=== PATIENT | male | born 1975 | race Caucasian/White ===

== ENCOUNTER 2023-12-14 13:49 | Emergency (ER) | payer OTHER ==
[2023-12-14 14:12] VITALS: RESP 20; TEMP 98.6
--- NOTE | 2023-12-14 15:30 | ED ---
General Adult HPI - General Chief complaint: Skin/Abscess/Foreign Body Stated complaint: mass on neck Time Seen by Provider: 12/14/23 14:59 Source: patient Mode of arrival: ambulatory Limitations: no limitations - History of Present Illness Initial comments: Patient is a 48-year-old male, past medical history of diabetes presenting today for right-sided neck mass. Patient states that the mass has been there for the last 2 to 3 years has increased in size in the last 2-3 months. Approximately 2 months ago patient experienced a dark purple red rash around his eyes and face so went to a clinic and was placed on antibiotics and steroids. Patient feels rash worsened with steroids. He has been back and forth to this clinic and trialed on various anti biotics without improvement in the rash. Over the last week patient began experiencing fatigue and weakness in his upper extremities. 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 Last week he has noticed that he is losing his voice and over the last 2 months has also had difficulty swallowing liquids and solids. He states that if he tries to swallow them he coughs them back up. Due to this he has lost approximately 40 to 50 pounds in the last [address] soft tissue mass done one week ago which showed 4x3 cm necrotic mass in the right side of the neck. Was seen by his PCP this morning who sent him to the ED for further evaluation. Patient denies fevers, chills, sweats, chest pain, difficulty in breathing, abdominal pain, nausea, vomiting, diarrhea, black or bloody stools. - Related Data Allergies Allergy/AdvReac Type Severity Reaction Status Date / Time ibuprofen [From Advil] AdvReac Unknown Verified 12/14/23 14:12 naproxen [From Aleve] AdvReac Unknown Verified 12/14/23 14:12 Review of Systems ROS Statement: Those systems with pertinent positive or pertinent negative responses have been documented in the HPI. ROS Other: All systems not noted in ROS Statement are negative. Past Medical History Past Medical History: Diabetes Mellitus Additional Past Medical History / Comment(s): Mass to right side of neck, type 2 diabetes, Past Surgical History: No Surgical Hx Reported Past Psychological History: No Psychological Hx Reported Smoking Status: Never smoker Past Alcohol Use History: Occasional Past Drug Use History: None Reported General Exam - General Exam Comments Initial Comments: Exam limited as patient was seen in waiting room hallway due to shortage of bed PE: CONSTITUTIONAL: no apparent distress, ill-appearing though nontoxic SKIN: Erythematous raised macular rash across forehead, cheeks, purpleish rash across eyelids, abdomen has erythematous macules with scabbing, no vesicular lesions present EYES: pupils are equally round, extraocular movements intact without nystagmus, clear conjunctiva, non-icteric sclera HENT: normocephalic, atraumatic, mildy dry mucus membranes, oropharynx clear without exudates, no uvular or tonsilar swelling or deviation, no oropharyngeal masses or edema NECK: Nontender and supple with no nuchal rigidity, full range of motion, firm palpable mass along the right side of patient's submandibular region, nontender, without drainage Limited as patient does have a mondragon PULMONARY: clear to auscultation without wheezes, rhonchi, or rales, normal excursion, no accessory muscle use and no stridor CARDIOVASCULAR: regular rate, rhythm, normal S1 and S2. No appreciated murmurs. Strong radial pulses with intact distal perfusion GASTROINTESTINAL: soft, non-tender,mildly distended, no palpable masses, no rebound or guarding LYMPHATICS: no edema in lower extremities. MUSCULOSKELETAL: Extremities are nontender to palpation and have no gross deformity, no edema, redness, or swelling, 4/5 strength upper upper extremities with shoulder abduction bilaterally, strength equal on both sides, 4/5 strength with hip flexion, strength equal on both sides NEUROLOGIC: _a/o x 3, GCS 15, normal mentation and speech. Moves all extremities x 4 without motor or sensory deficit, except weakness as noted in MSK exam PSYCHIATRIC: _normal mood and affect, thought process is clear and linear Limitations: no limitations Course Vital Signs 12/14/23 12/14/23 14:03 17:22 Temperature 98.6 F Pulse Rate 124 H 118 H Respiratory 20 20 Rate Blood Pressure 155/73 128/85 O2 Sat by Pulse 98 98 Oximetry - Reevaluation(s) Reevaluation #1: Discussed with Dr. Lopez, ENT, He recommends transfer due to location of mass. Discussed with patient, and discussed considering transfer to [facility], [place], he is comfortable with transfer to [facility]. 12/14/23 16:09 12/19/23 13:00 EKG Findings - EKG Comments: EKG Findings:: Sinus tachycardia. Rate 109 bpm. MN interval 149 ms. QT/QTc 335/399 ms. Normal axis. No ST elevations or depressions, no arrhythmia Medical Decision Making - Medical Decision Making Was pt. sent in by a medical professional or institution (, PA, COSMETOLOGIST APPRENTICE, urgent care, hospital, or snf...) When possible be specific @ -Patient was sent by his primary care provider, Dr. Ruiz Did you speak to anyone other than the patient for history (EMS, parent, family, police, friend...)? What history was obtained from this source @ -Discussed with patient's primary care provider, Dr. Ruiz, states that patient has been dealing with rash, Keflex and prednisone have been trialed wi thout relief, CT soft tissue neck ordered and resulted with necrotic mass in the right submandibular region, sent patient to the ED for further workup out of concern for neoplasm and due to stridor and difficulty in swallowing Did you review nursing and triage notes (agree or disagree)? Why? @ -I reviewed and agree with nursing and triage notes Were old charts reviewed (outside hosp., previous admission, EMS record, old EKG, old radiological studies, urgent care reports/EKG's, snf records)? Report findings @ -Reviewed CT soft tissue neck with contrast report, performed and resulted 12/05/2023 Differential Diagnosis (chest pain, altered mental status, abdominal pain women, abdominal pain men, vaginal bleeding, weakness, fever, dyspnea, syncope, headache, dizziness, GI bleed, back pain, seizure, CVA, palpatations, mental health, musculoskeletal)? @ -Differential diagnosis remains broad however top considerations include neoplasm, abscess, infected lymph node, though of note, patient presents with CT report as above. 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 EKG interpreted by me (3pts min.). @ -As above X-rays interpreted by me (1pt min.). @ -None done CT interpreted by me (1pt min.). @ -None done U/S interpreted by me (1pt. min.). @ -None done What testing was considered but not performed or refused? (CT, X-rays, U/S, labs)? Why? @ -Consider repeat CT soft tissue neck, however patient presented with CT report performed 1 week ago and patient's presenation overall stable since that time period What meds were considered but not given or refused? Why? @ -Did consider administering steroids however patient states that he feels he is worse and his rash so we will hold off at this point Did you discuss the management of the patient with other professionals (professionals i.e. , PA, COSMETOLOGIST APPRENTICE, lab, RT, psych nurse, older adult social work specialist, art educator, teacher, chief financial officer, gearcase assembler)? Give summary @ -Discussed with Dr. Lopez ENT Was smoking cessation discussed for >3mins.? @ -No Was critical care preformed (if so, how long)? @ -No Were there social determinants of health that impacted care today? How? (Homelessness, low income, unemployed, alcoholism, drug addiction, transportation, low edu. Level, literacy, decrease access to med. care, detention, rehab)? @ -Difficulty obtaining insurance, patient was hoping to wait for further evaluation of his neck mass until he was on insurance that would help pay for care of this Was there de-escalation of care discussed even if they declined (Discuss DNR or withdrawal of care, Hospice)? DNR status @ -No Was patient admitted / discharged? Hospital course, mention meds given and route, prescriptions, significant lab abnormalities, going to OR and other pe rtinent info. @ -Patient transferred to [facility] Patient is a pleasant 48-year-old gentleman presenting for submandibular mass that has been ongoing for 2 to 3 years, worsened over the last 2 to 3 months, with associated rash further characterized on CT 1 week ago, that was obtained due to voice changes, hoarseness. Reviewed CT scan, showed 3.5 x 4 cm potentially necrotic mass in the right submandibular region. Documented to be tachycardic on arrival, other VS stable, no hypoxia, tachypnea or hypotension. Suspect tachycardia could be 2/2 volume depletion as patient has not been able to eat or drink much due to neck mass, patient currently denies pain, so unlikely pain driven, could potentially be 2/2 infection as well. On my assessment patient was initially evaluated in waiting room due to shortage of beds in the main emergency department, initial assessment shows ill-appearing t debo nontoxic appearing 48-year-old male in no acute distress. Erythematous and purplish rash with thickening of the eyelids and forehead, scattered erythematous lesions across abdominal wall with scabbing, they do not follow a dermatomal distribution, there are no vesicular lesions, firm, palpable, nontender right-sided submandibular mass palpated. Patient has no stridor, wheezing, rhonchi or accessory muscle use. Lungs are clear to auscultation. He does have a hoarse voice. Normal S1-S2 on cardiac exam, abdomen is soft and nontender though mildly distended. Plan for dose of Unasyn, to cover for infectious etiology, urinalysis to assess for urine myoglobin, CBC, CMP, lactic, PT, PTT, CRP, ESR, blood cultures, troponin, EKG to assess for cardiac involvement if patient's presentation if causing patient skin changes is dermatomyositis. Patient and agreeable with plan of care. Reviewed labs, I see no leukocytosis, lymphocytes are low at 0.8, ESR 71, sodium 135, bicarb 21, creatinine 0.52, GFR greater than 90, AST/ALT 161/86, total bilirubin 0.9, troponin less than 0.012. Suspect elevated LFTs could be 2/2 steroid use, possible alcohol use. Patient displays no jaundice, hepatomegaly or RUQ pain on exam. Patient transferred ER [facility] to [facility] for further treatment of submandibular mass by ENT. Accepted for transfer by Dr. Hercules. Updated patient plan of care. We did discuss that there is concern that mass could potentially be neoplastic and discussed the need for urgent further workup and evaluation to ensure timely treatment, he is agreeable with transfer. Patient is in stable condition currently, protecting his airway without stidor, hypoxia or tachpnea or hypotension. Patient noted to be tachycardic prior to transfer, though IV fluids were not administered prior to transfer as patient was in waiting room for much of his workup and shortly after rooming patient accepted for transfer. Patient will be transferred via private vehicle due to patient preference, though ambulance transfer was offered. Undiagnosed new problem with uncertain prognosis? @ -Yes Drug Therapy requiring intensive monitoring for toxicity (Heparin, Nitro, Insulin, Cardizem)? @ -No Were any procedures done? @ -No Diagnosis/symptom? @ -Submandibular mass, rash, possible dermatomyositis Acute, or Chronic, or Acute on Chronic? @ -Acute Uncomplicated (without systemic symptoms) or Complicated (systemic symptoms)? @ -Complicated Side effects of treatment? @ -No Exacerbation, Progression, or Severe Exacerbation? @ -No Poses a threat to life or bodily function? How? (Chest pain, USA, NC, pneumonia, PE, COPD, DKA, ARF, appy, cholecystitis, CVA, Diverticulitis, Homicidal, Suicidal, threat to staff... and all critical care pts) @ -Yes, if submandibular mass allowed to progress or goes untreated, could eventually compromise airway leading to respiratory failure and . - Lab Data Result diagrams: 12/14/23 16:11 12/14/23 16:11 Lab Results 12/14/23 12/14/23 12/14/23 Range/Units 16:11 16:11 16:11 WBC 6.5 (3.8-10.6) k/uL RBC 4.92 (4.30-5.90) m/uL Hgb 14.0 (13.0-17.5) gm/dL Hct 42.8 (39.0-53.0) % MCV 87.0 (80.0-100.0) fL MCH 28.4 (25.0-35.0) pg MCHC 32.6 (31.0-37.0) g/dL RDW 13.1 (11.5-15.5) % Plt Count 276 (150-450) k/uL MPV 7.4 Neutrophils % 79 % Lymphocytes % 13 % Monocytes % 6 % Eosinophils % 2 % Basophils % 1 % Neutrophils # 5.1 (1.3-7.7) k/uL Lymphocytes # 0.8 L (1.0-4.8) k/uL Monocytes # 0.4 (0-1.0) k/uL Eosinophils # 0.1 (0-0.7) k/uL Basophils # 0.0 (0-0.2) k/uL ESR 71 H (0-15) mm/Hr PT 10.6 (10.0-12.5) sec INR 1.0 (<1.2) APTT 25.2 (22.0-30.0) sec Sodium 135 L (137-145) mmol/L Potassium 4.2 (3.5-5.1) mmol/L Chloride 103 (98-107) mmol/L Carbon Dioxide 21 L (22-30) mmol/L Anion Gap 11 mmol/L BUN 15 (9-20) mg/dL Creatinine 0.52 L (0.66-1.25) mg/dL Est GFR (CKD-EPI)AfAm >90 (>60 ml/min/1.73 sqM) Est GFR (CKD-EPI)NonAf >90 (>60 ml/min/1.73 sqM) Glucose 86 (74-99) mg/dL Plasma Lactic Acid Gavin (0.7-2.0) mmol/L Calcium 8.7 (8.4-10.2) mg/dL Total Bilirubin 0.9 (0.2-1.3) mg/dL AST 161 H (17-59) U/L ALT 86 H (4-49) U/L Alkaline Phosphatase 67 (38-126) U/L Troponin I (0.000-0.034) ng/mL C-Reactive Protein 4.1 H (<1.0) mg/dL Total Protein 6.6 (6.3-8.2) g/dL Albumin 3.8 (3.5-5.0) g/dL 12/14/23 12/14/23 Range/Units 16:11 16:11 WBC (3.8-10.6) k/uL RBC (4.30-5.90) m/uL Hgb (13.0-17.5) gm/dL Hct (39.0-53.0) % MCV (80.0-100.0) fL MCH (25.0-35.0) pg MCHC (31.0-37.0) g/dL RDW (11.5-15.5) % Plt Count (150-450) k/uL MPV Neutrophils % % Lymphocytes % % Monocytes % % Eosinophils % % Basophils % % Neutrophils # (1.3-7.7) k/uL Lymphocytes # (1.0-4.8) k/uL Monocytes # (0-1.0) k/uL Eosinophils # (0-0.7) k/uL Basophils # (0-0.2) k/uL ESR (0-15) mm/Hr PT (10.0-12.5) sec INR (<1.2) APTT (22.0-30.0) sec Sodium (137-145) mmol/L Potassium (3.5-5.1) mmol/L Chloride (98-107) mmol/L Carbon Dioxide (22-30) mmol/L Anion Gap mmol/L BUN (9-20) mg/dL Creatinine (0.66-1.25) mg/dL Est GFR (CKD-EPI)AfAm (>60 ml/min/1.73 sqM) Est GFR (CKD-EPI)NonAf (>60 ml/min/1.73 sqM) Glucose (74-99) mg/dL Plasma Lactic Acid Gavin 1.9 (0.7-2.0) mmol/L Calcium (8.4-10.2) mg/dL Total Bilirubin (0.2-1.3) mg/dL AST (17-59) U/L ALT (4-49) U/L Alkaline Phosphatase (38-126) U/L Troponin I <0.012 (0.000-0.034) ng/mL C-Reactive Protein (<1.0) mg/dL Total Protein (6.3-8.2) g/dL Albumin (3.5-5.0) g/dL Disposition Clinical Impression: Rash, Mass of right submandibular region Narrative: heliotrope 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 Specs Out of Hospital Transfer - Requested Specifics: Other Emergency Center (ENT who handles submandibular masses)
[2023-12-14] MEDS: AMPICILLIN-SULBACTAM 3 GM in SODIUM CHLORIDE 0.9% 100 ML IVPB STA (16:35)
[2023-12-14 16:47] LABS: Basophils % (A) 1 %; Eosinophils # (A) 0.1 k/uL (0-0.7); Eosinophils % (A) 2 %; HCT 42.8 % (39.0-53.0); Lymphocytes # (A) 0.8 k/uL (1.0-4.8); Lymphocytes % (A) 13 %; MCH 28.4 pg (25.0-35.0); MCHC 32.6 g/dL (31.0-37.0); Mean Platelet Volume 7.4; Monocytes # (A) 0.4 k/uL (0-1.0); Monocytes % (A) 6 %; Neutrophils # (A) 5.1 k/uL (1.3-7.7); Neutrophils % (A) 79 %; Platelet Count 276 k/uL (150-450); RBC 4.92 m/uL (4.30-5.90); RDW 13.1 % (11.5-15.5); WBC 6.5 k/uL (3.8-10.6)
[2023-12-14 16:58] LABS: Partial Thromboplastin Time 25.2 sec (22.0-30.0); Prothrombin Time 10.6 sec (10.0-12.5)
[2023-12-14 17:11] LABS: ALT 86 U/L (4-49); AST 161 U/L (17-59); African American GFR (CKD) >90 (>60 ml/min/1.73 sqM); Albumin 3.8 g/dL (3.5-5.0); Alkaline Phosphatase 67 U/L (38-126); Anion Gap 11 mmol/L; Blood Urea Nitrogen 15 mg/dL (9-20); C Reactive Protein 4.1 mg/dL (<1.0); Calcium 8.7 mg/dL (8.4-10.2); Carbon Dioxide 21 mmol/L (22-30); Chloride 103 mmol/L (98-107); Glucose 86 mg/dL (74-99); Non-African American GFR(CKD) >90 (>60 ml/min/1.73 sqM); Potassium 4.2 mmol/L (3.5-5.1); Sodium 135 mmol/L (137-145); Total Bilirubin 0.9 mg/dL (0.2-1.3); Total Protein 6.6 g/dL (6.3-8.2)
[2023-12-14 17:22] VITALS: BP 128/85; PULSE 118
[2023-12-15 01:45] LABS: Erythrocyte Sedimentation Rate 71 mm/Hr (0-15)
== END 2023-12-14 17:46 | disposition other institution (70) ==
LOC: EC 13:49
DX: R22.1 Localized swelling, mass and lump, neck (principal); R21 Rash and other nonspecific skin eruption; R00.0 Tachycardia, unspecified; Z88.6 Allergy status to analgesic agent
CPT/HCPCS: 36415; 93005; 80053; 85652; 83605; 84484; 85025; 85610; 85730; 86140; 87040; 99284; 96365; J0295

== ENCOUNTER 2024-01-04 13:25 | Day surgery (SDC) | payer OTHER ==
[~2024-01-04 13:25] MED LIST: ACETAMINOPHEN TAB 500 MG TAB ONE; DEXAMETHASONE SOD PHOSPHATE 4 MG/ML 1 ML VIAL ONE; HEPARIN SODIUM,PORCINE 5,000 UNIT/ML 1 ML VIAL ONE; LACTATED RINGERS 1,000 ML BAG ONE; ONDANSETRON 4 MG/2 ML VIAL ONE
[2024-01-04] MEDS ORDERED: PHENYLEPHRINE 10 MG/ML VIAL ONE (14:11)
[2024-01-04] MEDS ORDERED: PROPOFOL 10 MG/ML 20 ML VIAL IV ONE (14:11)
[2024-01-04] MEDS ORDERED: fentaNYL (PF) 50 MCG/ML 2 ML AMP ONE (14:11)
[2024-01-04] MEDS ORDERED: MIDAZOLAM 2 MG/2 ML VIAL ONE (14:11)
[2024-01-04] MEDS ORDERED: LIDOCAINE 1% INJ 10MG/ML (20 ML MDV) ONE (14:11)
[2024-01-04] MEDS ORDERED: SODIUM CHLORIDE 0.9% 100 ML BAG ONE (14:16)
[2024-01-04] MEDS ORDERED: ceFAZolin 1,000 MG VIAL ONE (14:16)
[2024-01-04] MEDS ORDERED: HEPARIN SODIUM,PORCINE 5,000 UNIT/ML 1 ML VIAL ONE ×2 (14:45)
[2024-01-04] MEDS ORDERED: LIDOCAINE 1% INJ 10MG/ML (10 ML MDV) ONE (14:45)
--- NOTE | 2024-01-23 12:53 | XR ---
sAcencion Bernardo : 1975 EXAMINATION TYPE: XR chest 1V DATE OF EXAM: 01/04/2024 COMPARISON: None available during downtime HISTORY: 48-year-old male status post Port-A-Cath insertion TECHNIQUE: Single frontal view of the chest is obtained. FINDINGS: Right anterior chest wall injection port with catheter tip at the mid to lower SVC level. No appreciable pneumothorax. Heart normal size. No consolidation or pleural effusion. IMPRESSION: Right chest wall injection port with catheter tip at the mid to lower SVC.
--- NOTE | 2024-02-21 16:15 | FL ---
EXAMINATION TYPE: XR chest 1V DATE OF EXAM: 01/04/2024 COMPARISON: None available during downtime HISTO RY: 48-year-old male status post Port-A-Cath insertion TECHNIQUE: Single frontal view of the chest is obtained. FINDINGS: Right anterior chest wall injection port with catheter tip at the mid to lower S VC level. No appreciable pneumothorax. Heart normal size. No consolidation or pleural effusion. IMPRESSION: Right chest wall injection port with catheter tip at the mid to lower SVC. [facility], , 02/21/2024 4:12 PM
== END 2024-01-04 17:16 ==
LOC: OR 13:25
PROVIDERS: ATTEND Surgery
DX: Z45.2 Encounter for adjustment and management of vascular access device (principal); C76.0 Malignant neoplasm of head, face and neck
CPT/HCPCS: 71045; 77001

== ENCOUNTER → 2024-02-11 | Outpatient (CLI) | payer OTHER | END | disposition home or self-care (01) | LOC: LABWHC1 09:18 | PROVIDERS: ATTEND Radiology Radiation Oncology | DX: C77.0 Secondary and unspecified malignant neoplasm of lymph nodes of head, face and neck (principal); C01 Malignant neoplasm of base of tongue | CPT/HCPCS: 36415; 82550; 82607 ==

== ENCOUNTER → 2024-05-05 | Outpatient (CLI) | payer OTHER ==
--- NOTE | 2024-05-07 10:06 | CT ---
EXAMINATION TYPE: CT neck chest w con CT DLP: 1508 mGycm, Automated exposure control for dose reduction was used. DATE OF EXAM: 05/05/2024 12:19 PM COMPARISON: Chest radiograph 01/04/2024. 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 Axial sections with coronal and sagittal refo rmats were obtained. Contrast used:100 mL of Isovue 300 with IV Contrast, (none if empty) Oral contrast used: (none if empty) FINDINGS: BRAIN: Visualized portions are grossly unremarkable. ORBITS: Unremarkable SINUSES: Coastal thickening of the left sphenoid sinus, sphenoid, and ethmoid sinuses. SUPRAHYOID NECK: The oropharynx, oral cavity, parapharyngeal and retropharyngeal spaces are clear and symmetric. The nasopharynx is unremarkable. INFRAHYOID NECK: The vocal cords appear symmetric without abnormality. There is asymmetrical thickeni ng of the posterior right false vocal cord . PAROTID GLANDS: Unremarkable. SUBMANDIBULAR GLANDS: Left submandibular gland is unremarkable. Slight anterior displacement of the r ight adrenal gland due to adenopathy. No focal lesion identified within the submandibular gland. MUSCULOSKELETAL: No acute osseous pathology. No aggressive osseous lesion. LYMPH NODES: Heterogeneously calcified enlarged lesion within the right submandibular space measurin g 3.1 x 1.9 x 3.4 cm in AP, TV, CC dimensions (series 3, image 62). Additional few subcentimeter lym ph nodes identified throughout the neck. VASCULAR STRUCTURES: Visualized major arteries are patent without evidence of aneurysm. THORACIC INLET/AIRWAY: Airway is patent. The lung apices are clear. SOFT TISSUES/THYROID: Thyroid is unremarkable. Diffuse anasarca. OTHER: none. LUNGS/ PLEURA: No pleural effusion, pneumothorax, or focal consolidation. Right lower lobe 9 mm solid pulmonary nodule (series 7, image 52). Right lower lobe pleural-based nodule measuring 8 mm (series 7, image 46). Right middle lobe 4 mm pulmonary nodule (series 7, image 33). Right lower lobe 5 mm pu lmonary nodule (series 7, image 33). AIRWAY: Patent. Trace secretions within the trachea. HEART: Size within normal limits.No pericardial effusion MEDIASTINUM: No evidence of adenopathy. VASCULATURE: No aortic aneurysm. Right anterior chest wall Mediport with distal tip of catheter term inating at the superior cavoatrial junction. MUSCULOSKELETAL: No acute osseous abnormalities. No aggressive osseous lesion. SOFT TISSUES/LYMPH NODES: Mild diffuse anasarca. LOWER NECK: No significant findings. UPPER ABDOMEN: No significant findings. IMPRESSION 1. Right submandibular space heterogeneously calcified 3.4 cm lesion probably representing reported neoplasm. Additionally there is asymmetric thickening of the posterior aspect of the right false voca l cord. No prior available for comparison. Correlate with prior imaging otherwise consider direct vis ualization. 2. Few pulmonary nodules identified with largest measuring up to 9 mm within the right lower lobe co ncerning for possible metastasis. No comparison is available. Correlate with prior reported PET/CT. [facility], , 05/07/2024 10:04 AM
== END | disposition home or self-care (01) ==
LOC: RADCTMAIN 11:18
PROVIDERS: ATTEND Internal Medicine Hematology & Oncology
DX: Z03.89 Encounter for observation for other suspected diseases and conditions ruled out (principal); C76.0 Malignant neoplasm of head, face and neck; R91.8 Other nonspecific abnormal finding of lung field
CPT/HCPCS: 70491; 71260; Q9967

== ENCOUNTER → 2024-05-23 | Outpatient (CLI) | payer OTHER ==
--- NOTE | 2024-05-25 01:20 | PE ---
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 Images are reviewed on the computer in the coronal, axial , and sagittal planes. Reconstructed rotating images are created on independent workstation and revi ewed on the computer. A non-contrast CT is performed in conjunction with the PET scan. Glucose leve l 90 mg/dL CT DLP: 822.38 mGycm, Automated exposure control for dose reduction was used. COMPARISON: CT 05/05/2024, PET/CT None, MRI: None FINDINGS: Mediastinal SUV mean is 1.0. Hepatic parenchyma SUV mean is 1.8. SKULL BASE AND NECK: Right lateral tongue base/submandibular space peripheral region of FDG activity with central region o f gas measuring approximately 3.1 x 1.7 cm with a maximum SUV of 11.5. Mild asymmetrical enlargement of the right inferior parotid gland with some mild FDG activity demonst rate a maximum SUV of 3.7. Right jugular calcified lesion measuring 2.6 x 1.3 cm with a maximum SUV of 3.0. Slightly asymmetrical thickening of the right false vocal cord with a maximum SUV of 4.0. Symmetric likely physiologic uptake within the nose. CHEST, MEDIASTINUM, AND HILAR REGION: No suspicious radiotracer activity. Previously seen subcentimeter pulmonary nodules do not demonstrate FDG activity above background. ABDOMEN AND PELVIS: No suspicious radiotracer activity. MUSCULOSKELETAL STRUCTURES: No suspicious radiotracer activity. Scattered regions of uptake identified within the vertebral bodies likely related to posttreatment ch anges. OTHER CT: Mild mucosal thickening of the left maxillary sinus, ethmoid, right frontal, and sphenoid s inuses. Right chest wall IJ Mediport with distal to the catheter terminating in the upper IVC. Small coronary artery and aortic valvular calcifications. Small fat filled umbilical hernia. Minimal athero sclerotic calcifications aorta and its branches. Fat filled patulous left inguinal ring. Distal colon ic diverticulosis without evidence for acute diverticulitis. Central prostate calcifications. Physiol ogic radiotracer uptake is identified within the paravertebral musculature of the neck and upper thor ax. IMPRESSION: 1. Right lateral tongue base/submandibular space peripheral region of FDG activity with central necr osis likely representing reported malignancy. 2. Peripherally calcified lesion within the right jugular space without significant FDG activity. Ma y represent treated disease. 3. Asymmetric thickening of the right false vocal cord with mild FDG activity which may be reactive to treatment change however underlying malignancy isn't entirely excluded. 4. Asymmetric enlargement of the inferior right parotid gland with mild FDG activity which is likely reactive to treatment change. 5. Few scattered subcentimeter nodules do not demonstrate FDG activity however these may be below th e sensitivity of PET/CT. Attention on follow-up exams. 6. No other suspicious FDG activity within the chest, abdomen or pelvis to suggest metastasis. [facility], , 05/25/2024 1:17 AM
== END | disposition home or self-care (01) ==
LOC: RADPETMAIN 07:44
PROVIDERS: ATTEND Internal Medicine Hematology & Oncology
DX: C76.0 Malignant neoplasm of head, face and neck (principal); I70.0 Atherosclerosis of aorta; K42.9 Umbilical hernia without obstruction or gangrene; K57.30 Diverticulosis of large intestine without perforation or abscess without bleeding
CPT/HCPCS: 78815; A9552

== ENCOUNTER 2024-06-04 16:03 | Emergency (ER) | payer OTHER ==
--- NOTE | 2024-06-04 17:17 | ED ---
Skin/Abscess/FB HPI - General Chief complaint: Skin/Abscess/Foreign Body Stated complaint: Fever,R sided facial swelling Time Seen by Provider: 06/04/24 16:19 Source: patient, RN notes reviewed Mode of arrival: ambulatory Limitations: no limitations - History of Present Illness Initial comments: This is a 48-year-old male with history of neck CA and DM presenting with right neck swelling/pain (10/10) x 1 month. Patient states symptoms worsened earlier today with associated fever (103F) and difficulty breathing/eating due to swelling. Endorses already finishing chemotherapy and radiation treatment and is awaiting inferior tonsillar biopsy. Endorses use of [place] 7.5 mg prior to arrival. States he is unable to take Tylenol or ibuprofen for pain/fever. Patient states he has an upcoming appointment with his oncologist, Dr. Millan, on 06/10/2024. MD complaint: other (Right submandibular edema) Onset/Timin -: month(s) Location: neck Severity scale (1-10): 10 Consistency: constant Improves with: none Worsens with: movement Context: other (History of neck CA) Associated symptoms: fever, other (Dyspnea, anorexia) Treatments Prior to Arrival: prescription analgesic ([place] 7.5 mg) - Related Data Home Medications Medication Instructions Recorded Confirmed Gabapentin [Neurontin] 100 mg PO HS 06/04/24 06/04/24 HYDROcodone/APAP 7.5-325MG [[place] 1 tab PO Q4H PRN 06/04/24 06/04/24 7.5-325] Ibuprofen [Motrin] 800 mg PO TID PRN 06/04/24 06/04/24 Allergies Allergy/AdvReac Type Severity Reaction Status Date / Time ibuprofen [From Advil] AdvReac Unknown Verified 06/04/24 19:48 naproxen [From Aleve] AdvReac Unknown Verified 06/04/24 19:48 Review of Systems ROS Statement: Those systems with pertinent positive or pertinent negative responses have been documented in the HPI. ROS Other: All systems not noted in ROS Statement are negative. Past Medical History Past Medical History: Diabetes Mellitus Additional Past Medical History / Comment(s): Mass to right side of neck, type 2 diabetes, Past Surgical History: No Surgical Hx Reported Past Psychological History: No Psychological Hx Reported Smoking Status: Never smoker Past Alcohol Use History: Occasional Past Drug Use History: None Reported General Exam Limitations: no limitations General appearance: alert, in no apparent distress Head exam: Present: atraumatic, normocephalic, normal inspection Eye exam: Present: normal appearance, PERRL, EOMI. Absent: scleral icterus, conjunctival injection, periorbital swelling ENT exam: Present: normal exam, mucous membranes moist Neck exam: Present: tenderness, lymphadenopathy (Significant right submandibular edema (baseball size), turgid with erythema and tenderness. Positive sublingual tenderness without elevation of floor of mouth.). Absent: meningismus Respiratory exam: Present: normal lung sounds bilaterally. Absent: respiratory distress, wheezes, rales, rhonchi, stridor Cardiovascular Exam: Present: regular rate, normal rhythm, normal heart sounds. Absent: systolic murmur, diastolic murmur, rubs, gallop, clicks GI/Abdominal exam: Present: soft, normal bowel sounds. Absent: distended, tenderness, guarding, rebound, rigid Extremities exam: Present: normal inspection, full ROM, normal capillary refill. Absent: tenderness, pedal edema, joint swelling, calf tenderness Back exam: Present: normal inspection Neurological exam: Present: alert, oriented X3, CN II-XII intact Psychiatric exam: Present: normal affect, normal mood Skin exam: Present: warm, dry, intact, normal color. Absent: rash Course Vital Signs 06/04/24 06/04/24 06/04/24 16:06 19:03 21:33 Temperature 100.0 F H 98.8 F 98.7 F Pulse Rate 128 H 88 94 Respiratory 20 16 19 Rate Blood Pressure 122/71 150/80 144/81 O2 Sat by Pulse 96 96 96 Oximetry Medical Decision Making - Medical Decision Making Was pt. sent in by a medical professional or institution (, PA, QUALITY CONTROL ANALYST, urgent care, hospital, or longterm...) When possible be specific @ -No Did you speak to anyone other than the patient for history (EMS, parent, family, police, friend...)? What history was obtained from this source @ -No Did you review nursing and triage notes (agree or disagree)? Why? @ -I reviewed and agree with nursing and triage notes Were old charts reviewed (outside hosp., previous admission, EMS record, old EKG, old radiological studies, urgent care reports/EKG's, longterm records)? Report findings @ -Reviewed chest/neck CT from 05/07/2024 which noted a calcified neoplasm in the right submandibular region. Differential Diagnosis (chest pain, altered mental status, abdominal pain women, abdominal pain men, vaginal bleeding, weakness, fever, dyspnea, syncope, headache, dizziness, GI bleed, back pain, seizure, CVA, palpatations, mental health, musculoskeletal)? @ -Differential Fever: Pneumonia, viral URI, endocarditis, myocarditis, pericarditis, otitis, sinusitis, peritonsillar Abscess, retropharyngeal Abscess, epiglottitis, peritonitis, appendicitis, Chatsity cystitis, diverticulitis, hepatitis, colitis, UTI, PID, TOA, pyelonephritis, prostatitis, epididymitis, meningitis, encephalitis, pulmonary embolism, CVA, thyroid storm, pancreatitis, adrenal crisis, cavernous sinus thrombosis, this is not meant to be an all-inclusive list. EKG interpreted by me (3pts min.). @ -Not done X-rays interpreted by me (1pt min.). @ -CXR shows no acute cardiopulmonary process. CT interpreted by me (1pt min.). @ -Soft tissue neck CT shows worsening subcutaneous edema and skin thickening over right mandibular region with deeper and thin-walled fluid near side neoplasm. U/S interpreted by me (1pt. min.). @ -None done What testing was considered but not performed or refused? (CT, X-rays, U/S, labs)? Why? @ -None What meds were considered but not given or refused? Why? @ -None Did you discuss the management of the patient with other professionals (professionals i.e. , PA, QUALITY CONTROL ANALYST, lab, RT, psych nurse, social work job titles, field administrator, teacher, security officer supervisor, case fitter)? Give summary @ -Spoke to Dr. Medina who advised contact ENT. Spoke to Dr. Fitch who advised contact [facility]. Then spoke to Dr. Hercules from [facility] who agreed to admit patient. Was smoking cessation discussed for >3mins.? @ -No Was critical care preformed (if so, how long)? @ -No Were there social determinants of health that impacted care today? How? (Homelessness, low income, unemployed, alcoholism, drug addiction, transp ortation, low edu. Level, literacy, decrease access to med. care, long term, rehab)? @ -No Was there de-escalation of care discussed even if they declined (Discuss DNR or withdrawal of care, Hospice)? DNR status @ -No What co-morbidities impacted this encounter? (DM, HTN, Smoking, COPD, CAD, Cancer, CVA, ARF, Chemo, Hep., AIDS, mental health diagnosis, sleep apnea, morbid obesity)? @ -Neck CA, DM Was patient admitted / discharged? Hospital course, mention meds given and route, prescriptions, significant lab abnormalities, going to OR and other pertinent info. @ -Lab work shows leukocytosis (12.8) with left shift. Remaining lab work including lactic acid, Cepheid test and strep test unremarkable. CXR shows no acute cardiopulmonary process. Soft tissue neck CT shows worsening subcutaneous edema and skin thickening over right mandibular region with deeper and thin- walled fluid near side neoplasm. Patient initially given normal saline and Dilaudid and continued pain control during stay in ER. Patient given IV cefepime and vancomycin for suspected infection. Spoke to [facility] who agreed to admit patient. Discussed case with Dr. Olvera. Undiagnosed new problem with uncertain prognosis? @ -Right mandibular edema/abscess Drug Therapy requiring intensive monitoring for toxicity (Heparin, Nitro, Insulin, Cardizem)? @ -No Were any procedures done? @ -No Diagnosis/symptom? @ -Possible submandibular abscess Acute, or Chronic, or Acute on Chronic? @ -Acute Uncomplicated (without systemic symptoms) or Complicated (systemic symptoms)? @ -Complicated Side effects of treatment? @ -No Exacerbation, Progression, or Severe Exacerbation? @ -Severe exacerbation Poses a threat to life or bodily function? How? (Chest pain, [place], [place], pneumonia, PE, COPD, DKA, ARF, appy, cholecystitis, CVA, Diverticulitis, Homicidal, Suicidal, threat to staff... and all critical care pts) @ -Possible occlusion of airway, respiratory arrest, sepsis - Lab Data Result diagrams: 06/04/24 17:42 06/04/24 17:42 Lab Results 06/04/24 06/04/24 06/04/24 Range/Units 17:42 17:42 17:42 WBC 12.8 H (3.8-10.6) k/uL RBC 4.01 L (4.30-5.90) m/uL Hgb 11.6 L (13.0-17.5) gm/dL Hct 33.6 L (39.0-53.0) % MCV 83.7 (80.0-100.0) fL MCH 28.9 (25.0-35.0) pg MCHC 34.5 (31.0-37.0) g/dL RDW 14.3 (11.5-15.5) % Plt Count 290 (150-450) k/uL MPV 6.8 Neutrophils % 91 % Lymphocytes % 4 % Monocytes % 3 % Eosinophils % 1 % Basophils % 0 % Neutrophils # 11.5 H (1.3-7.7) k/uL Lymphocytes # 0.5 L (1.0-4.8) k/uL Monocytes # 0.4 (0-1.0) k/uL Eosinophils # 0.1 (0-0.7) k/uL Basophils # 0.0 (0-0.2) k/uL Sodium 133 L (137-145) mmol/L Potassium 4.6 (3.5-5.1) mmol/L Chloride 96 L (98-107) mmol/L Carbon Dioxide 30 (22-30) mmol/L Anion Gap 7 mmol/L BUN 18 (9-20) mg/dL Creatinine 0.51 L (0.66-1.25) mg/dL Est GFR (CKD-EPI)AfAm >90 (>60 ml/min/1.73 sqM) Est GFR (CKD-EPI)NonAf >90 (>60 ml/min/1.73 sqM) Glucose 141 H (74-99) mg/dL Plasma Lactic Acid Gavin 1.7 (0.7-2.0) mmol/L Calcium 9.0 (8.4-10.2) mg/dL Total Bilirubin 0.2 (0.2-1.3) mg/dL AST 34 (17-59) U/L ALT 30 (4-49) U/L Alkaline Phosphatase 74 (38-126) U/L Total Protein 7.5 (6.3-8.2) g/dL Albumin 3.6 (3.5-5.0) g/dL Influenza Type A (PCR) (Not Detectd) Influenza Type B (PCR) (Not Detectd) RSV (PCR) (Not Detectd) SARS-CoV-2 (PCR) (Not Detectd) Group A Strep (PCR) (Not Detectd) 06/04/24 06/04/24 Range/Units 18:11 18:11 WBC (3.8-10.6) k/uL RBC (4.30-5.90) m/uL Hgb (13.0-17.5) gm/dL Hct (39.0-53.0) % MCV (80.0-100.0) fL MCH (25.0-35.0) pg MCHC (31.0-37.0) g/dL RDW (11.5-15.5) % Plt Count (150-450) k/uL MPV Neutrophils % % Lymphocytes % % Monocytes % % Eosinophils % % Basophils % % Neutrophils # (1.3-7.7) k/uL Lymphocytes # (1.0-4.8) k/uL Monocytes # (0-1.0) k/uL Eosinophils # (0-0.7) k/uL Basophils # (0-0.2) k/uL Sodium (137-145) mmol/L Potassium (3.5-5.1) mmol/L Chloride (98-107) mmol/L Carbon Dioxide (22-30) mmol/L Anion Gap mmol/L BUN (9-20) mg/dL Creatinine (0.66-1.25) mg/dL Est GFR (CKD-EPI)AfAm (>60 ml/min/1.73 sqM) Est GFR (CKD-EPI)NonAf (>60 ml/min/1.73 sqM) Glucose (74-99) mg/dL Plasma Lactic Acid Gavin (0.7-2.0) mmol/L Calcium (8.4-10.2) mg/dL Total Bilirubin (0.2-1.3) mg/dL AST (17-59) U/L ALT (4-49) U/L Alkaline Phosphatase (38-126) U/L Total Protein (6.3-8.2) g/dL Albumin (3.5-5.0) g/dL Influenza Type A (PCR) Not Detected (Not Detectd) Influenza Type B (PCR) Not Detected (Not Detectd) RSV (PCR) Not Detected (Not Detectd) SARS-CoV-2 (PCR) Not Detected (Not Detectd) Group A Strep (PCR) NOT DETECTED (Not Detectd) Disposition Clinical Impression: Submandibular abscess Disposition: OTHER INSTITUTION NOT DEFINED Condition: Good Is patient prescribed a controlled substance at d/c from ED?: No Referrals: Rajiv Ruiz MD [Primary Care Provider] - 1-2 days Time of Disposition: 20:08 - Out of Hospital Transfer - Req. Specs Out of Hospital Transfer - Requested Specifics: Other Emergency Center ([facility])
--- NOTE | 2024-06-04 17:37 | XR ---
EXAMINATION TYPE: XR chest 2V DATE OF EXAM: 06/04/2024 5:31 PM COMPARISON: Chest x-ray January 04, 2024. CLINICAL INDICATION: Male, 48 years old with history of Fever TECHNIQUE: Frontal and lateral views of the chest are obtained. FINDINGS: Stable right internal jugular Mediport catheter. There is no focal air space opacity, pleu ral effusion, or pneumothorax seen. The cardiac silhouette size is within normal limits. The osseo us structures are intact. IMPRESSION: No acute pulmonary infiltrate. [facility], , 06/04/2024 5:35 PM
[2024-06-04 17:54] LABS: Basophils % (A) 0 %; Eosinophils # (A) 0.1 k/uL (0-0.7); Eosinophils % (A) 1 %; HCT 33.6 % (39.0-53.0); HGB 11.6 gm/dL (13.0-17.5); Lymphocytes # (A) 0.5 k/uL (1.0-4.8); Lymphocytes % (A) 4 %; MCH 28.9 pg (25.0-35.0); MCHC 34.5 g/dL (31.0-37.0); MCV 83.7 fL (80.0-100.0); Mean Platelet Volume 6.8; Monocytes # (A) 0.4 k/uL (0-1.0); Monocytes % (A) 3 %; Neutrophils # (A) 11.5 k/uL (1.3-7.7); Neutrophils % (A) 91 %; Platelet Count 290 k/uL (150-450); RBC 4.01 m/uL (4.30-5.90); RDW 14.3 % (11.5-15.5); WBC 12.8 k/uL (3.8-10.6)
[2024-06-04] MEDS: HYDROmorphone 1 MG/ML 1 ML SYRINGE IVP STA ×2 (18:07→20:12)
[2024-06-04] MEDS: SODIUM CHLORIDE 0.9% 1,000 ML IV STA ×2 (18:11→20:11)
[2024-06-04 18:24] LABS: ALT 30 U/L (4-49); AST 34 U/L (17-59); African American GFR (CKD) >90 (>60 ml/min/1.73 sqM); Albumin 3.6 g/dL (3.5-5.0); Alkaline Phosphatase 74 U/L (38-126); Anion Gap 7 mmol/L; Blood Urea Nitrogen 18 mg/dL (9-20); Carbon Dioxide 30 mmol/L (22-30); Chloride 96 mmol/L (98-107); Glucose 141 mg/dL (74-99); Non-African American GFR(CKD) >90 (>60 ml/min/1.73 sqM); Potassium 4.6 mmol/L (3.5-5.1); Sodium 133 mmol/L (137-145); Total Bilirubin 0.2 mg/dL (0.2-1.3); Total Protein 7.5 g/dL (6.3-8.2)
--- NOTE | 2024-06-04 19:18 | CT ---
EXAMINATION TYPE: CT soft tissue neck w con DATE OF EXAM: 06/04/2024 HISTORY: Pt has noticeable swelling to right side of face and jaw under eyes look very red. Hx of nec k CA. COMPARISON: PET/CT May 23, [address] DLP: 290.7 mGycm. Automated Exposure Control for Dose Reduction was Utilized. TECHNIQUE: CT scan of the neck is performed with IV Contrast, patient injected with 100cc mL of Isov ue 300, axial images are obtained, coronal and sagittal reformatted images are reviewed. FINDINGS: Airway: No gross abnormality seen. Parotid/submandibular glands: Asymmetric slight enlargement of the right submandibular gland has rosendo lar appearance to prior study. Carotid/Vascular Structures: No significant abnormality. Osseous Structures: Mild spurring and disc space narrowing C5-C6 and C6-C7 levels is redemonstrated. Other: Right-sided internal jugular Mediport catheter is partially imaged similar to prior. There is ill-defined fluid and subcutaneous edema in the neck redemonstrated from the anterior level of the clavicles extending superiorly more prominent over the right mandible versus left. Abnormal si gnificant thickening and subcutaneous edema is more prominent versus priors at this level. There is g as in the region deep of the angle of the right mandible near axial image 53 demonstrated that is sli ghtly more prominent from prior studies with some ill-defined fluid. This corresponds near site of ne oplasm on PET CT. Some prominent but subcentimeter lymph nodes in the right submandibular region in t his level are more prominent versus prior studies. The draining right internal jugular vein appears p atent but has more prominent mass effect on current study. There is persistent partially calcified mass posterior to the right submandibular gland axial image 4 5 measuring approximately 3.1 x 1.8 cm not significantly changed from priors. IMPRESSION: Correlating with history there is worsening subcutaneous edema and skin thickening over t he right mandibular region and more prominent deep air and thin-walled fluid near site of neoplasm de ep to the right mandible. Cannot exclude infection versus product of treatment. [facility], , 06/04/2024 7:15 PM
[2024-06-04] MEDS ORDERED: VANCOMYCIN IV PER PHARMACY 1 EACH MISC MISCELLANE PRN (20:22)
[2024-06-04] MEDS: CEFEPIME 2 GM in SODIUM CHLORIDE 0.9% 100 ML IVPB SCH (20:36)
[2024-06-04] MEDS: VANCOMYCIN 1,000 MG in SODIUM CHLORIDE 0.9% 250 ML IVPB SCH (20:38)
[2024-06-04] MEDS: VANCOMYCIN 1,500 MG in SODIUM CHLORIDE 0.9% 500 ML 500 ML IVPB ONE (21:30)
[2024-06-04 21:35] VITALS: BP 144/81; PULSE 94; RESP 19; TEMP 98.7
[2024-06-04] MEDS: HYDROmorphone 0.5 MG/0.5 ML SYRINGE IVP SCH (21:54)
[2024-06-05] MEDS ORDERED: VANCOMYCIN 1,500 MG in SODIUM CHLORIDE 0.9% 500 ML 500 ML IVPB SCH (05:00)
== END 2024-06-05 00:25 | disposition other institution (70) ==
LOC: EC 16:03
DX: K12.2 Cellulitis and abscess of mouth (principal); E11.9 Type 2 diabetes mellitus without complications; Z88.6 Allergy status to analgesic agent
CPT/HCPCS: 36415; 87651; 80053; 83605; 85025; 87636; 71046; 70491; 99285; 96365; 96375; 96376 ×2; 96367; 96366 ×2; 96361 ×2; J3370; J0692; J1171 ×2; Q9967

== ENCOUNTER 2024-06-23 06:47 | Day surgery (SDC) | payer OTHER ==
[~2024-06-23 06:47] MED LIST changes: -ACETAMINOPHEN TAB 500 MG TAB ONE; +ACETAMINOPHEN TAB 500 MG TAB PO PRN; -DEXAMETHASONE SOD PHOSPHATE 4 MG/ML 1 ML VIAL ONE; -HEPARIN SODIUM,PORCINE 5,000 UNIT/ML 1 ML VIAL ONE; -LACTATED RINGERS 1,000 ML BAG ONE; -ONDANSETRON 4 MG/2 ML VIAL ONE
[2024-06-23] MEDS ORDERED: SCOPOLAMINE 1 MG/72 HR PATCH TRANSDERM ONE (07:08)
[2024-06-23] MEDS ORDERED: MIDAZOLAM 2 MG/2 ML VIAL IV PRN (07:08)
[2024-06-23] MEDS ORDERED: HYDROmorphone 0.5 MG/0.5 ML SYRINGE IVP PRN (07:08)
[2024-06-23] MEDS: IV FLUID CONTINUATION 1,000 ML IV ONE (07:09)
[2024-06-23 07:31] VITALS: TEMP 98.3
[2024-06-23 07:51] LABS: Glucose,Whole Blood 108 mg/dL (70-110)
[2024-06-23] MEDS: HEPARIN SODIUM,PORCINE 5,000 UNIT/ML 1 ML VIAL SQ PRN (07:51)
[2024-06-23] MEDS: DEXAMETHASONE SOD PHOSPHATE 4 MG/ML 1 ML VIAL IV ONE (07:51)
[2024-06-23] MEDS: ONDANSETRON 4 MG/2 ML VIAL IVP ONE (07:51)
[2024-06-23] MEDS: LACTATED RINGERS 1,000 ML IV SCH (07:51)
--- NOTE | 2024-06-23 08:35 | P.GSHP ---
History of Present Illness H&P Date: 06/23/24 Chief Complaint: Head neck cancer 48-year-old male here for Port-A-Cath removal. Patient had his port placed last year for chemotherapy. Going to be going through surgery on the right side of his neck soon. No plans for further chemo currently. They are asking for port removal. Patient still utilizing PEG tube for feeds. Past Medical History Past Medical History: Cancer, Diabetes Mellitus Additional Past Medical History / Comment(s): Mass to right side of neck, type 2 diabetes-no meds since wt loss, diet controlled. infection in jaw after receiving radiation. (?abscessed tooth area) hole under tongue on abx at this time. last radiation tx 03/06/24 last chemo 03/05/24. nothing orally at this time. has j tube. History of Any Multi-Drug Resistant Organisms: None Reported Past Surgical History: No Surgical Hx Reported Additional Past Surgical History / Comment(s): j tube insertion ([facility]). bx mass in neck. ( negative 06/10/24) Past Anesthesia/Blood Transfusion Reactions: No Reported Reaction Smoking Status: Former smoker - Past Family History Father Family Medical History: No Reported History Medications and Allergies Home Medications Medication Instructions Recorded Confirmed Type HYDROcodone/APAP 7.5-325MG [[place] 1 tab PO Q4H PRN 06/04/24 06/23/24 History 7.5-325] Ibuprofen [Motrin] 800 mg PO TID PRN 06/04/24 06/23/24 History Amox/K 875-125 1 tab PO BID 06/19/24 06/23/24 History Chlorhexadine Glu 0.12% 15 ml PO BID 06/19/24 06/23/24 History Allergies Allergy/AdvReac Type Severity Reaction Status Date / Time naproxen [From Aleve] AdvReac Rash/Hives Verified 06/23/24 07:35 Surgical - Exam Vital Signs Temp Pulse Resp BP Pulse Ox 98.3 F 103 H 18 114/62 95 06/23/24 07:27 06/23/24 07:27 06/23/24 07:27 06/23/24 07:27 06/23/24 07:27 Physical exam: General: Well-developed, well-nourished HEENT: Normocephalic, sclerae nonicteric Abdomen: Nontender, nondistended, PEG tube in place Extremities: No edema Neuro: Alert and oriented Chest: Right-sided Port-A-Cath in place Assessment and Plan (1) Head and neck cancer Narrative/Plan: Will proceed with Port-A-Cath removal at this time. Current Visit: Yes Status: Acute Code(s): C76.0 - MALIGNANT NEOPLASM OF HEAD, FACE AND NECK SNOMED Code(s): 218477553
[2024-06-23] MEDS ORDERED: KETAMINE HCL IN 0.9 % NACL 50 MG/5 ML SYRINGE ONE (08:42)
[2024-06-23] MEDS ORDERED: fentaNYL (PF) 50 MCG/ML 2 ML AMP ONE (08:42)
[2024-06-23] MEDS ORDERED: MIDAZOLAM 2 MG/2 ML VIAL ONE (08:42)
[2024-06-23] MEDS: LIDOCAINE 1% INJ 10MG/ML (20 ML MDV) SQ ONE ×2 (09:01)
[2024-06-23 09:33] VITALS: RESP 16
[2024-06-23] MEDS ORDERED: NALOXONE 0.4 MG/ML 1 ML VIAL IV PRN (09:33)
[2024-06-23] MEDS ORDERED: HYDROcodone/APAP 5-325MG 1 EACH TAB PO PRN (09:33)
--- NOTE | 2024-06-23 09:35 | P.OP ---
Date of Procedure: 06/23/24 Procedure(s) Performed: PREOPERATIVE DIAGNOSIS: Head and neck cancer POSTOPERATIVE DIAGNOSIS: Same PROCEDURE: Port-A-Cath removal SURGEON: Efren EBL: Minimal ANESTHESIA: Sedation COMPLICATIONS: None OPERATIVE PROCEDURE: Patient was placed in the supine position. The patient was sedated per anesthesia that time. The chest was prepped and draped in the usual sterile fashion. The skin was localized with Marcaine solution. The previous incision was re-incised using a scalpel. The port was easily excised using accommodation of blunt dissection sharp dissection and electrocautery. The subcutaneous tissues were reapproximated using 3-0 Vicryl sutures. The skin was reapproximated using 4-0 Monocryl sutures. Skin glue was then applied. DISPOSITION: Stable to recovery room
[2024-06-23 09:48] VITALS: BP 112/65; PULSE 91
== END 2024-06-23 10:00 | disposition home or self-care (01) ==
LOC: OR 06:47
PROVIDERS: ATTEND Surgery
DX: Z45.2 Encounter for adjustment and management of vascular access device (principal); C76.0 Malignant neoplasm of head, face and neck; E11.9 Type 2 diabetes mellitus without complications; Z87.891 Personal history of nicotine dependence; Z88.6 Allergy status to analgesic agent
CPT/HCPCS: 36590; J2250; J1644; J1100; J0690; J2405; J2003; J3010

== ENCOUNTER → 2024-10-08 | Outpatient (CLI) | payer OTHER ==
--- NOTE | 2024-10-08 13:25 | CT ---
CT thorax with contrast. HISTORY: Neck cancer, follow-up study.. COMPARISON: 05/05/2024 TECHNIQUE: Multiple thorax after the administration of IV contrast material. FINDINGS: 2 of the previously described nodules in the right upper lobe and in the right lower lobe have resol christal. There is a subpleural parenchymal nodule in the right lower lobe which appears slightly more mas slike in the interval. A 9 mm nodule in the right lower lobe parenchyma has decreased to 7.5 mm. Ther e are no new or suspicious left lung nodules. There is no airspace consolidation. There is no abnormal interstitial density. There is no pleural effusion or pneumothorax. The great vessels of the chest and heart are normal in size. There is no mediastinal, hilar or axilla ry adenopathy. Limited scanning through the upper abdomen reveals no gross abnormality. There are no osseous lesions. There is no airspace consolidation or abnormal interstitial density There is no pleural effusion, pleural thickening or pneumothorax. The great vessels the chest are normal with no mediastinal, hilar or axillary adenopathy. Limited scanning through the upper abdomen reveals no significant abnormality. There are no focal osseous lesions. IMPRESSION: 1. Overall decreased or resolved right lung nodules as described above with the exception of one pleu ral parenchymal nodule in the right lung base which appears slightly more masslike compared to previo us. 2. No mediastinal, hilar or axillary adenopathy. 3. no acute cardiopulmonary disease. [facility], Workstation: JOEY 10/08/2024 1:22 PM
== END | disposition home or self-care (01) ==
LOC: RADCTMAIN 12:31
PROVIDERS: ATTEND Internal Medicine Hematology & Oncology
DX: C76.0 Malignant neoplasm of head, face and neck (principal); M33.12 Other dermatomyositis with myopathy; G89.3 Neoplasm related pain (acute) (chronic); E11.9 Type 2 diabetes mellitus without complications
CPT/HCPCS: 71260; Q9967

== ENCOUNTER → 2024-12-25 | Outpatient (CLI) | payer OTHER ==
--- NOTE | 2024-12-25 08:08 | CT ---
EXAMINATION TYPE: CT soft tissue neck wo/w con CT DLP: 1418.8 mGycm, Automated exposure control for dose reduction was used. DATE OF EXAM: 12/25/2024 7:40 AM COMPARISON: CT soft tissue neck 06/04/2024, PET CT 05/23/2024 CT Neck With chest 05/05/2024. 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 Axial sections with coronal and sagittal reformats were obtained. FINDINGS: Brain: Visualized portions are grossly unremarkable. Orbits: Unremarkable Sinuses: Hyperostosis of the left maxillary sinus with moderate mucosal thickening. Mild to moderate mucosal thickening in the ethmoid sinuses. Moderate mucosal thickening in the bilateral sphenoid sinu ses with hyperostosis. Trace inferior bilateral mastoid effusions. Suprahyoid/infrahyoid Neck: Extensive postsurgical changes of the oropharynx and larynx involving the right tongue base. Regions of soft tissue thickening within the right jugular region. The nasopharyn x is unremarkable. Parotid Glands: Unremarkable. Submandibular Glands: Submandibular gland is unremarkable. Right centimeter gland is surgically absen t. Previously seen right mandibular mass has been resected. No suspicious enhancing soft tissue withi n the surgical bed. Additional postsurgical changes within the left mandibular space with surgical cl ips. Musculoskeletal: Linear fracture involving the anterior right mandible with fixation plating identifi ed. Fracture line is still visible. Mild multilevel degenerative disease of the cervical spine. Lymph nodes: No enlarged lymph nodes greater than 1 cm short axis identified.. Vascular structures: Visualized major arteries are patent without evidence of aneurysm. 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 Thoracic Inlet/airway: Postsurgical changes. Tube identified from the laryngectomy orifice to the eso phagus. The trachea is patent with synechiae present. The lung apices are clear. Soft tissues/Thyroid: Thyroid gland is surgically absent. Extensive postsurgical changes with skin th ickening and subcutaneous edema of the lower anterior neck. Other: none. IMPRESSION: 1. Extensive postsurgical changes of the oral pharynx and larynx with subcutaneous edema and skin thi ckening. Regions of soft tissue within the right jugular region likely related to postsurgical change . Attention on follow-up exam. 2. Fracture of the right anterior mandible with fixation plating. Fracture line is still present. [facility], , 12/25/2024 8:05 AM
== END | disposition home or self-care (01) ==
LOC: RADCTMAIN 07:07
PROVIDERS: ATTEND Student in an Organized Health Care Education/Training Program
DX: S02.601A Fracture of unspecified part of body of right mandible, initial encounter for closed fracture (principal); C10.9 Malignant neoplasm of oropharynx, unspecified; R60.0 Localized edema; X58.XXXA Exposure to other specified factors, initial encounter
CPT/HCPCS: 70492; Q9967